=== PATIENT | male | born 1980 | race Caucasian/White ===

== ENCOUNTER 2017-09-11 16:50 | Emergency (ER) | payer OTHER ==
[~2017-09-11] VITALS: Ht 188 cm; Wt 100.0 kg
[2017-09-11] MEDS ORDERED: KETOROLAC 30 MG/1 ML ONE (17:16)
[2017-09-11] MEDS ORDERED: PLEASE ENTER ALLERGIES MC SCH (17:30)
[2017-09-11] MEDS ORDERED: KETOROLAC 30 MG/1 ML IVPush ONE (17:30)
[2017-09-11] MEDS ORDERED: SODIUM CHLORIDE 0.9% 1,000ML IVBOLUS ONE (17:30)
[2017-09-11 18:54] VITALS: BP 142/86
== END 2017-09-11 19:03 | disposition home or self-care (01) ==
LOC: ED 18:55
DX: S16.1XXA Strain of muscle, fascia and tendon at neck level, initial encounter (principal); S20.219A Contusion of unspecified front wall of thorax, initial encounter; S40.012A Contusion of left shoulder, initial encounter; V54.5XXA Driver of pick-up truck or van injured in collision with heavy transport vehicle or bus in traffic accident, initial encounter; Y93.89 Activity, other specified; Y92.410 Unspecified street and highway as the place of occurrence of the external cause; Y99.8 Other external cause status
CPT/HCPCS: 71045; 71260; 93005; 96374; 99284; J1885; J7030